=== PATIENT | female | born 1945 | race Caucasian/White ===

== ENCOUNTER 2018-01-13 15:42 | Emergency (ER) | payer MEDICARE, BC ==
[2018-01-13 16:02] VITALS: BP 134/70
--- NOTE | 2018-01-13 16:19 | ED Physician Documentation ---
History of Present Illness - Stated complaint Stated Complaint: R LEG PX - Chief complaint Chief Complaint: Ext Problem - History obtained from History obtained from: Patient, Family - History of Present Illness Timing: How many weeks ago (4+) - Additonal information Additional information: 72-year-old female who [place] had a recent plane flight and she is developed some pain in her right thigh. She states the pain is deep in the thigh and is an ache. She tends to have some swelling when she flies and she does have swelling of both of her lower extremities. She denies any pain in the calf and she has not otherwise been ill. She has had sciatica previously and spinal stenosis and she feels this is different from what she has had previously with that as she is usually had some pain associated with that. This is more of a dull constant ache. She feels it may have been going on for longer than before this flight. As long as a month. She called her doctor and was told to come to the hospital to get a duplex exam. Review of Systems Constitutional: denies: Fever Eyes: denies: Decreased vision Ears: denies: Ear pain Nose: denies: Congestion Throat: denies: Sore throat Cardiac: denies: Chest pain / pressure, Palpitations Respiratory: denies: Dyspnea, Cough GI: denies: Abdominal Pain, Nausea, Vomiting : denies: Dysuria, Frequency Skin: denies: Rash Musculoskeletal: reports: Extremity pain, Extremity swelling. denies: Neck pain , Back pain Neurologic: denies: Generalized weakness, Focal weakness, Numbness PD PAST MEDICAL HISTORY - Past Medical History Past Medical History: Yes Cardiovascular: Hypertension, High cholesterol Endocrine/Autoimmune: Type 2 diabetes - Present Medications Home Medications: Ambulatory Orders Medication Instructions Recorded Confirmed Aspirin 81 mg PO 01/13/18 Cyclobenzaprine [Flexeril] 10 mg PO TID PRN #20 tablet 01/13/18 Fenofibrate 01/13/18 Glucosamine HCl 01/13/18 01/13/18 Metformin HCl [Glucophage Xr] 01/13/18 Mirabegron [Myrbetriq] 25 mg PO 01/13/18 Simvastatin 20 mg PO 01/13/18 Sitagliptin Phosphate [Januvia] 50 mg PO 01/13/18 - Allergies Allergies/Adverse Reactions: Allergies Allergy/AdvReac Type Severity Reaction Status Date / Time No Known Drug Allergies Allergy Verified 01/13/18 15:58 - Social History Does the pt smoke?: Yes Smoking Status: Current every day smoker PD ED PE NORMAL - Vitals Vital signs reviewed: Yes (hypertensive ) - General General: Alert and oriented X 3, No acute distress, Well developed/nourished - HEENT HEENT: Atraumatic, PERRL - Respiratory Respiratory: No respiratory distress - Derm Derm: Normal color, Warm and dry, No rash - Extremities Extremities: No deformity, Other (There is swelling to the lower ext bilaterally non-pitting ) - Neuro Neuro: No motor deficit, No sensory deficit Eye Opening: Spontaneous Motor: Obeys Commands Verbal: Oriented GCS Score: 15 - Psych Psych: Normal mood, Normal affect Results - Vitals Vitals: Vital Signs - 24 hr 01/13/18 15:55 Temperature 36.5 C Heart Rate 73 Respiratory 14 Rate Blood Pressure 134/70 H O2 Saturation 96 Oxygen O2 Source Room air - Rads (name of study) duplex veins right Radiology: Prelim report reviewed (Impression: No evidence for deep venous thrombosis.), EMP read indepedently, See rad report PD MEDICAL DECISION MAKING - ED course Complexity details: reviewed results, re-evaluated patient, considered differential, d/w patient, d/w family ED course: 72-year-old female with some pain in her right leg that is a deep pain in her thigh was concerned about the possibility of deep vein thrombosis. She had been on the phone with her doctor and the doctor recommended she had come in to get duplex exam done. This all seems reasonable and her duplex exam is negative and I am diagnosing sciatica we will give the patient a dose of dexamethasone and provide a prescription for some Flexeril. Departure - Departure Disposition: 01 Home, Self Care Clinical Impression: Sciatica Qualifiers: Laterality: right Qualified Code(s): M54.31 - Sciatica, right side Condition: Stable Instructions: ED Sciatica Follow-Up: Your, doctor [Other] Prescriptions: Cyclobenzaprine [Flexeril] 10 mg PO TID PRN #20 tablet PRN Reason: Spasms
--- NOTE | 2018-01-13 17:09 | Ultrasound Report ---
EXAM: RIGHT LOWER EXTREMITY VENOUS ULTRASOUND EXAM DATE: 01/13/2018 04:54 PM. CLINICAL HISTORY: Deep thigh pain after long flight. COMPARISON: None. TECHNIQUE: Real-time sonographic vascular imaging was performed by the tennis centre manager through the lower extremity utilizing both color-flow and Doppler spectral analysis. Multiple textiles sales representative static bernie ges were saved for review. FINDINGS: Common Femoral Vein (CFV): Normal. CFV-GSV Junction: Normal. Profunda Femoral Vein (PFV): Normal. Femoral Vein (FV) Prox: Normal. Femoral Vein (FV) Mid: Normal. Femoral Vein (FV) Dist: Normal. Popliteal Vein: Normal. Posterior Tibial Veins: Normal. Peroneal Veins: Normal. Contralateral Side CFV: Normal. Other: None. IMPRESSION: No evidence for deep venous thrombosis. [facility] Referring Provider Line: [phone] SITE ID: [id number]
--- NOTE | 2018-01-13 17:09 | Ultrasound Preliminary Report ---
Exam: US DUPLEX EXT VEINS RIGHT IMPRESSION: No evidence for deep venous thrombosis. [facility] SITE ID: [id number]
[2018-01-13] MEDS ORDERED: DEXAMETHASONE 10 MG/ML VIAL PO STA (17:36)
[2018-01-13] MEDS ORDERED: CHERRY SYRUP 10 ML UDC PO ONE (17:49)
== END 2018-01-13 17:42 | disposition home or self-care (01) ==
LOC: ED 15:42
DX: M54.31 Sciatica, right side (principal); I10 Essential (primary) hypertension; E78.00 Pure hypercholesterolemia, unspecified; E11.9 Type 2 diabetes mellitus without complications; F17.200 Nicotine dependence, unspecified, uncomplicated; Z79.84 Long term (current) use of oral hypoglycemic drugs; Z79.82 Long term (current) use of aspirin
CPT/HCPCS: 93971; 99282; 99283; A9270